=== PATIENT | male | born 1990 | race African-American/Black ===

== ENCOUNTER 2017-06-11 03:11 | Emergency (ER) | payer MEDICAID ==
[~2017-06-11] VITALS: Ht 172.7 cm; Wt 109.3 kg
[2017-06-11] MEDS ORDERED: ALBUTEROL/IPRATROPIUM 2.5MG/0.5MG, 3 ML ONE (03:30)
[2017-06-11] MEDS: ALBUTEROL/IPRATROPIUM 2.5MG/0.5MG, 3 ML NPPB SCH (03:30)
[2017-06-11 05:05] VITALS: BP 137/78
== END 2017-06-11 05:08 | disposition home or self-care (01) ==
LOC: ED 05:07
DX: J45.41 Moderate persistent asthma with (acute) exacerbation (principal)
CPT/HCPCS: 71045; 93005; 94640; 99284; J7512; J7620

== ENCOUNTER 2017-07-29 20:33 | Emergency (ER) | payer MEDICAID ==
[~2017-07-29] VITALS: Ht 177.8 cm; Wt 108.5 kg
[2017-07-29] MEDS ORDERED: ALBUTEROL/IPRATROPIUM 2.5MG/0.5MG, 3 ML ONE (21:13)
[2017-07-29] MEDS ORDERED: ALBUTEROL/IPRATROPIUM 2.5MG/0.5MG, 3 ML NPPB PRN (21:30)
[2017-07-29 21:47] VITALS: BP 139/81
== END 2017-07-29 22:11 | disposition home or self-care (01) ==
LOC: ED 21:50
DX: J45.41 Moderate persistent asthma with (acute) exacerbation (principal)
CPT/HCPCS: 71046; 94640; 99284; J7512; J7620